=== PATIENT | male | born 1970 | race Caucasian/White ===

== ENCOUNTER 2022-12-10 17:40 | Emergency (ER) | payer OTHER ==
[~2022-12-10] VITALS: Ht 162.6 cm; Wt 58.1 kg
[~2022-12-10 17:40] MED LIST: PANTOPRAZOLE SO40 M2 PO; TRAZ50 PO; ZOLOFT50 MG PO
[2022-12-10 18:03] VITALS: BP 130/105
== END 2022-12-10 20:36 | disposition home or self-care (01) ==
LOC: ER 17:40
DX: S93.402A Sprain of unspecified ligament of left ankle, initial encounter (principal); S90.32XA Contusion of left foot, initial encounter; X58.XXXA Exposure to other specified factors, initial encounter
CPT/HCPCS: 73630; 99283-25

== ENCOUNTER 2023-03-09 09:12 | Emergency (ER) | payer OTHER ==
[~2023-03-09] VITALS: Ht 162.6 cm; Wt 60.3 kg
[2023-03-09 10:27] LABS: BASOPHILS ABSOLUTE AUTO 0.07 K/mm3 (0.00-0.23); BASOPHILS PERCENT AUTO 1 % (0-2); EOSINOPHILS PERCENT AUTO 2 % (0-6); Hematocrit 48.1 % (37.0-53.0); Hemoglobin 16.5 g/dL (13.5-17.5); IMMATURE GRAN ABSOLUTE AUTO 0.01 K/mm3 (0.00-0.10); IMMATURE GRAN PERCENT AUTO 0 % (0-1); LYMPHOCYTES PERCENT AUTO 19 % (21-46); MONOCYTES ABSOLUTE AUTO 0.46 K/mm3 (0.16-1.47); MONOCYTES PERCENT AUTO 9 % (4-13); Mean Corpuscular HGB 32.2 pg (26.0-34.0); Mean Corpuscular HGB Conc 34.3 g/dL (31.5-36.5); Mean Corpuscular Volume 94 fL (80-100); Mean Platelet Volume 10.2 fL (9.1-12.4); NEUTROPHILS ABSOLUTE AUTO 3.74 K/mm3 (1.96-9.15); NEUTROPHILS PERCENT AUTO 69 % (41-73); Platelet Count 200 K/mm3 (150-400); RDW Coefficient Variation 15.4 % (11.7-14.2); RDW Standard Deviation 53.8 fL (35.1-46.3); Red Blood Cell Count 5.13 M/mm3 (4.30-5.90); White Blood Cell Count 5.38 K/mm3 (4.00-11.30)
[2023-03-09 10:43] LABS: Source, Urine Clean Catch
[2023-03-09 10:47] LABS: Bilirubin, Urine Neg (Neg); Blood, Urine Neg (Neg); Glucose Qualitative, Urine Neg (Neg); Ketones, Urine Neg (Neg); Leukocyte Esterase, Urine Neg (Neg); Nitrite, Urine Neg (Neg); Protein, Urine 1+ (Neg); Specific Gravity, Urine 1.025 (1.003-1.022); Urobilinogen, Urine 1+ (Normal)
[2023-03-09 10:49] LABS: Appearance, Urine Clear (Clear); Color, Urine Yellow (P-Yellow)
[2023-03-09 10:50] LABS: Albumin, Blood 3.2 g/dL (3.4-5.0); Albumin/Globulin Ratio 0.8 (0.8-1.8); Bilirubin, Total 0.5 mg/dL (0.1-1.0); Bun/Creatinine Ratio 24.8 (12.0-20.0); Calcium, Blood 8.5 mg/dL (8.5-10.1); Creatinine, Blood 1.05 mg/dL (0.60-1.20); Globulin, Blood 3.9 g/dL (2.2-4.0); Magnesium, Blood 2.7 mg/dL (1.6-2.4); Potassium, Blood 4.4 mmol/L (3.5-5.5); Total Protein, Blood 7.1 g/dL (6.4-8.2)
[2023-03-09 11:20] VITALS: BP 139/68
== END 2023-03-09 12:10 | disposition home or self-care (01) ==
LOC: ER 09:12
PROVIDERS: Physician Assistant
DX: M62.838 Other muscle spasm (principal); Q90.9 Down syndrome, unspecified; R47.01 Aphasia; F32.A Depression, unspecified; Z79.899 Other long term (current) drug therapy
CPT/HCPCS: 80053; 83735; 85025; 99284

== ENCOUNTER 2023-03-21 13:21 | Emergency (ER) | payer OTHER ==
[~2023-03-21] VITALS: Ht 134.6 cm; Wt 52.6 kg
[2023-03-21 13:36] VITALS: BP 108/64
== END 2023-03-21 16:36 | disposition home or self-care (01) ==
LOC: ER 13:21
DX: R56.9 Unspecified convulsions (principal); G25.3 Myoclonus; Q90.9 Down syndrome, unspecified; Z79.899 Other long term (current) drug therapy
CPT/HCPCS: 99283